=== PATIENT | male | born 1970 | race Caucasian/White ===

== ENCOUNTER 2017-11-25 16:25 | Emergency (ER) | payer SELFPAY ==
[~2017-11-25] VITALS: Ht 172.7 cm; Wt 80.7 kg
[2017-11-25] MEDS ORDERED: ONDANSETRON 2MG/ML, 2ML IVPush ONE (17:00)
[2017-11-25] MEDS ORDERED: MORPHINE SULFATE 4 MG/ML, 1ML IVPush PRN (17:00)
[2017-11-25] MEDS ORDERED: MAALOX/HYOSCYAMINE/LIDOCAINE 45 ML BTL PO ONE (17:00)
[2017-11-25] MEDS ORDERED: SODIUM CHLORIDE 0.9% 1,000ML IVBOLUS ONE (17:00)
[2017-11-25 17:07] LABS: BASOPHILS # (AUTO) 0.04 x10^3/uL (0-0.1); BASOPHILS % (AUTO) 1 % (0-1); EOSINOPHILS # (AUTO) 0.24 x10^3/uL (0-0.4); EOSINOPHILS % (AUTO) 3 % (1-7); LYMPHOCYTES # (AUTO) 2.25 x10^3/uL (1-3.4); LYMPHOCYTES % (AUTO) 28 % (22-44); MD NO; MEAN CORPUSCULAR HEMOGLOBIN 30.8 pg (27.5-34.5); MEAN CORPUSCULAR HGB CONC 34.3 g/dL (33.2-36.2); MEAN CORPUSCULAR VOLUME 89.9 fL (81-97); MEAN PLATELET VOLUME 8.2 fL (7.4-10.4); MONOCYTES # (AUTO) 0.66 x10^3/uL (0.2-0.8); MONOCYTES % (AUTO) 8 % (2-9); NEUTROPHILS # (AUTO) 4.79 x10^3/uL (1.8-6.8); NEUTROPHILS % (AUTO) 60 % (42-75); PLATELET COUNT 211 x10^3/uL (130-400); RED BLOOD COUNT 5.72 x10^6/uL (4.38-5.82); RED CELL DISTRIBUTION WIDTH 13.3 % (9.4-14.8)
[2017-11-25] MEDS ORDERED: MORPHINE SULFATE 4 MG/ML, 1ML ONE (17:11)
[2017-11-25] MEDS ORDERED: MAALOX/HYOSCYAMINE/LIDOCAINE 45 ML BTL ONE (17:12)
[2017-11-25] MEDS ORDERED: ONDANSETRON 2MG/ML, 2ML ONE (17:12)
[2017-11-25 17:17] LABS: ALANINE AMINOTRANSFERASE 26 U/L (12-78); ANION GAP 8 mmol/L (5-15); CALCIUM 8.6 mg/dL (8.5-10.1); CHLORIDE 106 mmol/L (98-107)
[2017-11-25 17:20] LABS: ALKALINE PHOSPHATASE 66 U/L (45-117); BILIRUBIN,TOTAL 0.7 mg/dL (0.2-1.0); CREATININE 1.26 mg/dL (0.7-1.3); TOTAL PROTEIN 7.6 g/dL (6.4-8.2)
[2017-11-25 18:02] LABS: MICROSCOPIC NOT IND
[2017-11-25 18:07] LABS: CULTURE INDICATED? NO
[2017-11-25 19:11] VITALS: BP 111/62
== END 2017-11-25 19:16 | disposition home or self-care (01) ==
LOC: ED 18:50
DX: R10.13 Epigastric pain (principal)
CPT/HCPCS: 36415; 71045; 76700; 80053; 81003; 83690; 85025; 96361; 96374; 96375; 99285; J2405; J7030